=== PATIENT | female | born 1990 | race Caucasian/White ===

== ENCOUNTER 2019-01-29 02:25 | Inpatient (IN) | payer OTHER ==
[2019-01-29] MEDS ORDERED: Nalbuphine* 10 MG/ML 1 ML VIAL IM ONE (03:56)
[2019-01-29] MEDS ORDERED: Promethazine INJ(RESTRICTED)* 25 MG/ML 1 ML VIAL IM ONE (03:57)
[2019-01-29] MEDS ORDERED: Lactated Ringers 1000 ML Bag* 1,000 ML IV ONE (06:52)
[2019-01-29] MEDS ORDERED: Buffered Lidocaine 1% SYRIN* 1 ML/SYRINGE INTRADERM ONE (06:52)
[2019-01-29] MEDS ORDERED: Lactated Ringers 1000 ML Bag* 1,000 ML IV SCH ×2 (07:00→10:00)
[2019-01-29] MEDS ORDERED: OBEPIDURAL* 0 ML EPIDURAL ONE (07:15)
[2019-01-29] MEDS ORDERED: fentaNYL* 50 MCG/ML 2 ML VIAL (100 MCG VIAL) ONE (07:15)
--- NOTE | 2019-01-29 07:15 | HP ---
General Information - Reason for Visit Contractions increasing in strength and intensity - General Information Maternal Age: 29 Grav: 4 Para: 1 SAB: 2 IEA: 0 Estimated Due Date: 02/03/19 Determined By: Early Ultrasound Gestational Age in Weeks/Days: 39 2/ Maternal Blood Type and Rh: A Positive - Results this Serology/RPR Result: Non-Reactive Rubella Result: Immune HBsAg Result: Negative HIV Result: Negative GBS Culture Result: Negative Past Medical History Delivery History: Hx Uncomplicated Vaginal Delivery Pertinent Past Medical History: See Records - HSV II, depression/ anxiety, kidney stones Pertinent Past Surgical History: None Pertinent Family History: Non-Contributory - Antepartal Records Antepartal Records: Reviewed, Complicated by: - HSV II, chlamydia this , UTI Review of Systems Constitutional: Uncomfortable CV Complaint: No Respiratory: Shortness of Breath: No Gastrointestinal: No Nausea/Vomiting, Normal Bowel Movement Genitourinary: No Dysuria, No Bleeding, No Leaking Fluid Musculoskeletal: No Epigastric Pain, Contractions Neurological: No Headache, No Visual Changes Movement: Normal Exam Allergies/Adverse Reactions: Allergies No Known Allergies Allergy (Verified 01/09/19 16:55) T-98.9, P-80, R-18, BP-129/80 - Measurements Height: 5 ft 5 in Weight: 94.347 kg Weight in lbs: [phone] Body Mass Index (BMI): 34.6 Pre- Weight: 74.843 kg Weight Gained This : 43 lbs and 0 ozs - Exam Breast: Breast Exam Deferred CVA: No CVA Tenderness Extremities: Edema - mild pedal edema Heart: Normal Rhythm/Heart Sounds HEENT: No Significant Findings Lungs: Clear Bilaterally Rectal: Rectal Exam Deferred Reflexes: DTR 2+ Thyroid: No Thyromegaly - Abdominal Exam Abdomen Exam: Non-Tender, Fundal Height Consistent with Dates - Ultrasound/Biophysical Profile Ultrasound Status: Not Done
[2019-01-29 07:18] LABS: ABS Basophils 0.1 10^3/ul (0-0.2); ABS Eosinophils 0.3 10^3/ul (0-0.6); ABS Lymphocytes 2.8 10^3/ul (1.0-4.8); ABS Monocytes 1.1 10^3/ul (0-0.8); ABS Neutrophils 11.4 10^3/ul (1.5-7.7); Eosinophil % 1.6 %; Hematocrit 37 % (35-47); Hemoglobin 12.8 g/dL (12.0-16.0); Lymphocyte % 18.1 %; Mean Corpuscular HGB Conc 35 g/dL (31-36); Mean Corpuscular Hemoglobin 31 pg (27-31); Mean Corpuscular Volume 89 fL (80-97); Mean Platelet Volume 9.3 fL (7.4-10.4); Nucleated Red Blood Cells % 0.1; Platelet Count 180 10^3/uL (150-450); Red Blood Count 4.09 10^6 /uL (3.70-4.87); Red Cell Distribution Width 15 % (10-15); White Blood Count 15.7 10^3/uL (3.5-10.8)
[2019-01-29] MEDS ORDERED: Oxytocin in LR* 20 UNITS/1,000 ML BAG IVPB ONE (07:39)
--- NOTE | 2019-01-29 08:41 | PN ---
Work Excuse - Work Note Work Note: Please excuse Roxy Sosa from work 01/29/19 as she was at [facility] providing support to the above patient who gave today. [] Nicole Thomason, JOSH [id number]
--- NOTE | 2019-01-29 09:14 | PN ---
Progress Note - Progress Note Date of Service: 01/29/19 Note: Pt arrived on unit at 0240 with c/o ctx increasing in strength and frequency. Cervical exam at that time was closed/ 80%/ -2/ vtx. FHR baseline 140/ moderate variability/ + accels/ no decels. UCs every 2-5 minutes. Mother at bedside, supportive. Pt coping well at that time. Plan made to reassess cervix in 2 hours or sooner as needed. At 0400 pt reported worsening pain. Cervical exam by RN showed cervix unchanged. Order given for Nubain and Phenergan IM. Pt experienced some relief from this initially. At 0623 pt reported worsening ctx, difficulty coping. Cervical exam at that time was 4cm/ 80%/ -1/ vtx. FHR 130 per doppler. UCs every 3-4 minutes, strong. Pt admitted to L&D. Requested epidural anesthesia, anesthesiologist paged, IV access established. At 0700 pt found to be 7cm/ 80%/ -1. Anesthesiologist at bedside and plan made to do intrathecal for labor analgesia. Intrathecal performed with adequate pain relief. Pt vitals: BP 128/76, 88p. FHR baseline 135/ moderate variability/ no accels/ no decels. Cervix fully dilated +1 station. See delivery note.
--- NOTE | 2019-01-29 09:20 | PROCNOTE ---
[facility] OB: Delivery Note - Delivery A Date of : 01/29/19 Time of : 07:55 [place] Sex: Female Weight at : 3.374 kg Score 1 Minute: 8 Score 5 Minutes: 9 Gestational Age in Weeks and Days at Delivery: 39 Weeks and 2 Days Delivery Method: Spontaneous Vaginal Labor: Spontaneous Did Patient attempt ?: N/A, No Previous Amniotic Fluid: Meconium Estimated Blood Loss: 200 Anesthesia/Analgesia: ITF/Spinal for Labor Delivered By: Nicole Thomason - Nursery Level of Nursery: Regular/Bedside - Perineum Perineal Injury: None/Intact Perineal Repair: None - Events Delivery Events of Note: None Apply - Additional Delivery Notes Additional Delivery Notes: Pt admitted to L&D after outpt visit yesterday for labor check with no cervical change. Pt initially unchanged, and was given Nubain and Phenergan. Pt then began to progress quickly and requested analgesia. Intrathecal performed by anesthesiologist with adequate relief of pain, after which time pt was found to be fully dilated with a bulging bag of church. AROM performed to meconium stained fluid and pt coached to begin to push. Pt pushed with good effort and steady descent. Pt soon brought to , and was coached through slow, controlled delivery of the head. Nuchal cord and compound hand noted, infant delivered in somersault maneuver and nuchal cord reduced. Infant placed on maternal abdomen with vigorous cry, HR>100, good tone. Color improved with drying and stimulation. After cord pulsation ceased, cord clamped x2 and cut by pt's mother. Placenta soon delivered, spontaneous and freddy, complete and meconium stained. Fundas was firm and bleeding minimal, Pitocin initiated at 150 cc/ hr. Pt and infant stable at this time, anticipate normal course.
[2019-01-29] MEDS ORDERED: Dibucaine 1% 28.35 GM TUBE PR PRN (09:27)
[2019-01-29] MEDS ORDERED: Glycerin ADULT SUPP PR PRN (09:27)
[2019-01-29] MEDS ORDERED: Witch Hazel PAD* JAR TOPICAL PRN (09:27)
[2019-01-29] MEDS ORDERED: Oxytocin in LR* 20 UNITS/1,000 ML BAG IVPB SCH (10:00)
[2019-01-29] MEDS: Docusate CAP* 100 MG PO SCH ×2 (12:56→20:15)
[2019-01-29] MEDS: Ibuprofen TAB* 600 MG PO PRN ×2 (12:56→20:15)
[2019-01-29 13:01] LABS: Urine Benzodiazepine Screen None Detected (None Detect); Urine Opiates Screen None Detected (None Detect)
[2019-01-29] MEDS: Acetaminophen TAB* 325 MG PO PRN (16:31)
[2019-01-30] MEDS: Acetaminophen TAB* 325 MG PO PRN (00:48)
[2019-01-30 08:10] VITALS: BP 129/61
[2019-01-30 08:21] LABS: ABS Basophils 0.1 10^3/ul (0-0.2); ABS Eosinophils 0.3 10^3/ul (0-0.6); ABS Lymphocytes 2.7 10^3/ul (1.0-4.8); ABS Monocytes 0.7 10^3/ul (0-0.8); ABS Neutrophils 6.3 10^3/ul (1.5-7.7); Eosinophil % 2.6 %; Hematocrit 32 % (35-47); Hemoglobin 11.1 g/dL (12.0-16.0); Lymphocyte % 27.2 %; Mean Corpuscular HGB Conc 35 g/dL (31-36); Mean Corpuscular Hemoglobin 32 pg (27-31); Mean Corpuscular Volume 90 fL (80-97); Mean Platelet Volume 8.5 fL (7.4-10.4); Nucleated Red Blood Cells % 0.1; Platelet Count 139 10^3/uL (150-450); Red Blood Count 3.53 10^6 /uL (3.70-4.87); Red Cell Distribution Width 15 % (10-15)
[2019-01-30] MEDS ORDERED: Ferrous Gluconate TAB* 324 MG TAB PO SCH (09:00)
[2019-01-30] MEDS: Docusate CAP* 100 MG PO SCH ×2 (09:10→15:13)
[2019-01-30] MEDS: Ibuprofen TAB* 600 MG PO PRN ×2 (09:10→15:13)
[2019-01-30] MEDS ORDERED: Influenza VAC *QUAD* 2019-20* 0.5 ML SYRINGE IM ONE (16:00)
== END 2019-01-30 19:25 | disposition home or self-care (01) | DRG 560 ==
LOC: MCHOBOUT 02:25 → MCHOB 06:27
PROVIDERS: ADMIT Midwife; ATTEND Midwife
PROC: 10E0XZZ Delivery of Products of Conception, External Approach (ICD-10-PCS; principal; 2019-01-29)
PROC: 10907ZC Drainage of Amniotic Fluid, Therapeutic from Products of Conception, Via Natural or Artificial Opening (ICD-10-PCS; 2019-01-29)
PROC: 4A1HXCZ Monitoring of Products of Conception, Cardiac Rate, External Approach (ICD-10-PCS; 2019-01-29)
DX: O98.52 Other viral diseases complicating childbirth (principal); Z37.0 Single live birth; B00.9 Herpesviral infection, unspecified; O77.0 Labor and delivery complicated by meconium in amniotic fluid; O69.81X0 Labor and delivery complicated by cord around neck, without compression, not applicable or unspecified; O32.6XX0 Maternal care for compound presentation, not applicable or unspecified; Z3A.39 39 weeks gestation of pregnancy; Z87.442 Personal history of urinary calculi
CPT/HCPCS: 36415; 80307; 85025; 86850; 86900; 86901; 90686; A9270-GY; J2300; J2550; J3010

== ENCOUNTER 2019-05-19 17:05 | Emergency (ER) | payer OTHER ==
[2019-05-19 17:29] VITALS: BP 120/59
--- NOTE | 2019-05-19 18:20 | UC ---
Back Pain HPI - HPI Summary HPI Summary: 29-year-old female presents with complaints of low back pain this afternoon. States she was holding her infant child when she developed sudden low back pain. Describes pain as sharp. Occasionally radiates into the left hip. Pain worsens with bending, twisting, or any movement. Patient took 800 mg of ibuprofen approximately 2 hours prior to arrival with no relief in pain. Denies fever, chills, abdominal pain, nausea, vomiting, dysuria, frequency, urgency, hematuria, numbness, tingling, weakness of the extremities, or loss of bowel or bladder control. - History of Current Complaint Chief Complaint: UCBackPain Stated Complaint: BACK PAIN Time Seen by Provider: 05/19/19 18:15 Hx Obtained From: Patient Hx Last Menstrual Period: 05/17/18 Pain Intensity: 8 - Allergies/Home Medications Allergies/Adverse Reactions: Allergies Allergy/AdvReac Type Severity Reaction Status Date / Time No Known Allergies Allergy Verified 05/19/19 17:23 Home Medications: Home Medications Ibuprofen TAB* [Advil TAB*] 4 tab PO ONCE 05/19/19 [History Confirmed 05/19/19] PMH/Surg Hx/FS Hx/Imm Hx Previously Healthy: Yes - Denies significant PMH - Surgical History Surgical History: None - Family History Known Family History: Positive: Non-Contributory - Social History Occupation: Employed Full-time Lives: With Family Alcohol Use: None Substance Use Type: None Smoking Status (MU): Former Smoker When Did the Patient Quit Smoking/Using Tobacco: 2019 - Immunization History Most Recent Influenza Vaccination: 01/30/19 Most Recent Pneumonia Vaccination: 0 Review of Systems All Other Systems Reviewed And Are Negative: Yes Constitutional: Negative: Fever, Chills Skin: Negative: Rash Respiratory: Positive: Negative Gastrointestinal: Negative: Abdominal Pain, Vomiting, Nausea Genitourinary: Negative: Dysuria, Hematuria, Frequency, Urgency Motor: Negative: Weakness Neurovascular: Negative: Decreased Sensation Musculoskeletal: Positive: Other: - See HPI Neurological: Negative: Weakness, Paresthesia, Numbness Is Patient Immunocompromised?: No Physical Exam - Summary Physical Exam Summary: GENERAL APPEARANCE: Well developed, well nourished, alert and cooperative, and appears to be in no acute distress. CARDIAC: Normal S1 and S2. No S3, S4 or murmurs. Rhythm is regular. There is no peripheral edema, cyanosis or pallor. Extremities are warm and well perfused. Capillary refill is less than 2 seconds. Peripheral pulses intact. LUNGS: Clear to auscultation without rales, rhonchi, wheezing or diminished breath sounds. ABDOMEN: Positive bowel sounds. Soft, nondistended, nontender. No guarding or rebound. No masses or hepatosplenomegally. MUSKULOSKELETAL: ROM intact to all extremities. No joint erythema or tenderness. Normal muscular development. Normal gait. BACK: No midline spinal tenderness or deformity. Left paraspinous soft tissue tenderness with spasm to the lower lumbar back. NEUROLOGICAL: Strength and sensation symmetric and intact throughout. SKIN: Skin normal color, texture and turgor with no lesions or eruptions. Triage Information Reviewed: Yes Vital Signs: Initial Vital Signs Temp 97.5 F 05/19/19 17:24 Pulse 77 05/19/19 17:24 Resp 18 05/19/19 17:24 BP 120/59 05/19/19 17:24 Pulse Ox 99 05/19/19 17:24 Vital Signs Reviewed: Yes Back Pain Course/Dx - Course Course Of Treatment: 29-year-old female presents with complaints of low back pain this afternoon. States she was holding her infant child when she developed sudden low back pain. Describes pain as sharp. Occasionally radiates into the left hip. Pain worsens with bending, twisting, or any movement. Patient took 800 mg of ibuprofen approximately 2 hours prior to arrival with no relief in pain. Denies fever, chills, abdominal pain, nausea, vomiting, dysuria, frequency, urgency, hematuria, numbness, tingling, weakness of the extremities, or loss of bowel or bladder control. Afebrile. Vital signs stable. On exam patient had no midline spinal tenderness or deformity, left paraspinous soft tissue tenderness with spasm to the lower lumbar back, intact strength and sensation, and otherwise unremarkable exam. Recommending conservative treatment for acute low back pain of musculoskeletal origin including continued use of NSAIDs, cyclobenzaprine 10 mg every 8 hours as needed for severe pain or spasm, and heat therapy. She is to return here or follow up with her primary care provider in 5-7 days if symptoms are not improving. Anticipatory guidance and warning symptoms requiring immediate evaluation the emergency room were reviewed with the patient. Verbalizes understanding of this plan of care. - Differential Dx/Diagnosis Differential Diagnosis/HQI/PQRI: Compressive Cord Syndrome, Herniated Disc, Strain Provider Diagnosis: Acute low back pain Discharge ED - Sign-Out/Discharge Documenting (check all that apply): Patient Departure All imaging exams completed and their final reports reviewed: No Studies - Discharge Plan Condition: Stable Disposition: HOME Prescriptions: Cyclobenzaprine HCl 10 mg PO Q8HR PRN #15 tablet PRN Reason: Spasms - Back Patient Education Materials: Acute Low Back Pain (ED) Referrals: No Primary Care Phys,NOPCP [Primary Care Provider] - Additional Instructions: Your history and physical are consistent with musculoskeletal low back pain. Continue to take ibuprofen 600 mg every 8 hours as needed for pain. Take cyclobenzaprine 10 mg 1 tablet every 8 hours as needed for severe pain or spasm. This medication will cause drowsiness and to not take and drive or operate machinery. Apply a heating pad to the affected area for 15-20 minutes at least 4 times a day to help with the pain into the relax the muscles. Return here or follow-up with your primary care provider in 5-7 days if symptoms are not improving. Seek immediate medical attention in the emergency room if you develop a fever greater than 100.5 F, have severe pain that is not managed with the pain medications, he have difficulty walking, numbness, tingling, or weakness the lower extremities, lose control of her bowel or bladder, or have any worsening of symptoms. - Billing Disposition and Condition Condition: STABLE Disposition: Home
== END 2019-05-19 18:35 | disposition home or self-care (01) ==
LOC: UCCORT 17:05
DX: M54.5 Low back pain (principal); Z87.891 Personal history of nicotine dependence
CPT/HCPCS: 99212; G0463

== ENCOUNTER 2019-06-08 10:27 | Emergency (ER) | payer OTHER ==
[2019-06-08 10:48] VITALS: BP 122/74
--- NOTE | 2019-06-08 10:57 | UC ---
Complaint Female HPI - HPI Summary HPI Summary: had nexplanon placed in arm, and first period since was this month. Period lasted longer than normal. States on May 31, developed yellow abnormal vaginal discharge with odor. States felt like there was a flat disc that came out of her also. - History Of Current Complaint Chief Complaint: UCGU Stated Complaint: PERSONAL Time Seen by Provider: 06/08/19 10:55 Hx Obtained From: Patient Hx Last Menstrual Period: 05/17/2019 ?: No Onset/Duration: Sudden Onset, Lasting Days Timing: Lasting Days Severity Initially: Mild Severity Currently: Mild Pain Intensity: 0 Aggravating Factor(s): [place], Urination Alleviating Factor(s): Nothing Associated Signs And Symptoms: Positive: Vaginal Discharge - Allergies/Home Medications Allergies/Adverse Reactions: Allergies Allergy/AdvReac Type Severity Reaction Status Date / Time No Known Allergies Allergy Verified 06/08/19 10:41 Home Medications: Home Medications Etonogestrel [Nexplanon] 68 mg IMPLANT ONCE 06/08/19 [History Confirmed 06/08/19 ] PMH/Surg Hx/FS Hx/Imm Hx Previously Healthy: Yes - Surgical History Surgical History: None - Family History Known Family History: Positive: Hypertension - Social History Alcohol Use: None Substance Use Type: None Smoking Status (MU): Former Smoker When Did the Patient Quit Smoking/Using Tobacco: 2019 - Immunization History Most Recent Influenza Vaccination: 01/30/19 Most Recent Pneumonia Vaccination: 0 Review of Systems All Other Systems Reviewed And Are Negative: Yes Genitourinary: Positive: Vaginal/Penile Itching, Vaginal/Penile Discharge, Abnormal Bleeding - since having the nexplanon periords are much longer Is Patient Immunocompromised?: No Physical Exam Triage Information Reviewed: Yes Appearance: Well-Appearing, Well-Nourished, Obese Vital Signs: Initial Vital Signs Temp 97.5 F 06/08/19 10:42 Pulse 84 06/08/19 10:42 Resp 16 06/08/19 10:42 BP 122/74 06/08/19 10:42 Pulse Ox 100 06/08/19 10:42 Vital Signs Reviewed: Yes ENT Exam: Normal Dental Exam: Normal Neck exam: Normal Respiratory Exam: Normal Cardiovascular Exam: Normal Cardiovascular: Positive: RRR, No Murmur, Pulses Normal Abdomen Description: Positive: Nontender, No Organomegaly, Soft, CVA Tenderness (R) - neg, CVA Tenderness (L) - neg Pelvic Exam: Positive: Other - deferred exam, Musculoskeletal Exam: Normal Neurological Exam: Normal Psychological Exam: Normal Skin Exam: Normal Complaint Female Dx - Course Course Of Treatment: hx obtained, exam performed ,meds reviewed, collencted test specimins, discussed possiblities of caginal discharge with patient. she states she has had unprotected sex with new partner and is requesting STD testing - Differential Dx/Diagnosis Differential Diagnosis/HQI/PQRI: Sexually Transmitted Disease, Urinary Tract Infection Provider Diagnosis: Vaginal discharge Discharge ED - Sign-Out/Discharge Documenting (check all that apply): Patient Departure All imaging exams completed and their final reports reviewed: No Studies - Discharge Plan Condition: Stable Disposition: HOME Patient Education Materials: Sexually Transmitted Diseases (ED), Vaginitis (ED) Referrals: No Primary Care Phys,NOPCP [Primary Care Provider] - Additional Instructions: 1. take the diflucan one dose. 2. The results of your tests will be completeed in a few days. we call with any positive results. 3. FOllow up as needed. - Billing Disposition and Condition Condition: STABLE Disposition: Home
[2019-06-08 14:52] LABS: HIV 4th Generation Nonreactive (Nonreactive)
[2019-06-09 13:12] LABS: Chlamydia trachomatis NAA Negative (Negative); Neisseria gonorrhoeae (GC) NAA Negative (Negative)
--- NOTE | 2019-06-10 07:24 | UC ---
- Progress Note Progress Note: + BV , will send a Rx for Flagyl 500 mg bid x 7 days + Ecoli , cont. with Keflex for now , no sensitivity yet negative GC/ Chlamydia Course/Dx - Diagnoses Provider Diagnoses: Vaginal discharge Discharge ED - Sign-Out/Discharge Documenting (check all that apply): Patient Departure All imaging exams completed and their final reports reviewed: No Studies - Discharge Plan Condition: Stable Disposition: HOME Prescriptions: Cephalexin CAP* [Keflex CAP*] 500 mg PO BID #14 cap Fluconazole 150 MG TAB* [Diflucan 150 MG TAB*] 150 mg PO ONCE #1 tablet Patient Education Materials: Sexually Transmitted Diseases (ED), Urinary Tract Infection in Women (ED), Vaginitis (ED) Referrals: No Primary Care Phys,NOPCP [Primary Care Provider] - Additional Instructions: 1. take the diflucan one dose. 2. The results of your tests will be completeed in a few days. we call with any positive results. 3. FOllow up as needed. - Billing Disposition and Condition Condition: STABLE Disposition: Home
== END 2019-06-08 11:53 | disposition home or self-care (01) ==
LOC: UCCORT 10:27
DX: N89.8 Other specified noninflammatory disorders of vagina (principal); N92.4 Excessive bleeding in the premenopausal period; Z87.891 Personal history of nicotine dependence
CPT/HCPCS: 36415; 81003; 87077; 87086; 87186; 87389; 87480; 87491; 87510; 87591; 99212; G0463